=== PATIENT | female | born 1965 | race Caucasian/White ===

== ENCOUNTER 2017-03-31 12:03 | Outpatient (CLI) | payer BC ==
[~2017-03-31] VITALS: Ht 157.5 cm; Wt 62.7 kg
[2017-03-31] VITALS (10 sets, daily range): BP systolic 112–131; BP diastolic 64–71; PULSE 78–88; TEMP 97.9–98.3
[2017-03-31] MEDS ORDERED: NORVASC 5MG5 MG/TAB PO (14:04)
[2017-03-31] MEDS ORDERED: COZAAR100 MG PO (14:04)
[2017-03-31] MEDS ORDERED: NATURAL IRON65 MG PO (14:05)
[2017-03-31] MEDS ORDERED: NATURE'S BLE1000 MCG PO (14:05)
[2017-03-31] MEDS ORDERED: B-12 100 MCG PO (14:05)
== END 2017-03-31 18:23 | disposition home or self-care (01) ==
LOC: EUO 12:03
DX: N92.0 Excessive and frequent menstruation with regular cycle (principal); D64.89 Other specified anemias
CPT/HCPCS: J7050; P9016

== ENCOUNTER → 2017-09-03 | Outpatient (CLI) | payer BC ==
[~2017-09-03] MED LIST: B-12 100 MCG PO; COZAAR100 MG PO; NATURAL IRON65 MG PO; NATURE'S BLE1000 MCG PO; NORVASC 5MG5 MG/TAB PO
== END ==
LOC: COL.RAD 15:23
DX: T83.39XA Other mechanical complication of intrauterine contraceptive device, initial encounter (principal)

== ENCOUNTER → 2023-02-15 | Outpatient (CLI) | payer BC | LOC: MC.RAD 07:00 | DX: N60.81 Other benign mammary dysplasias of right breast (principal); N64.89 Other specified disorders of breast ==

== ENCOUNTER → 2023-02-17 | Outpatient (CLI) | payer BC | LOC: MC.RAD 09:42 | DX: N63.20 Unspecified lump in the left breast, unspecified quadrant (principal) ==